=== PATIENT | male | born 1980 | race Caucasian/White ===

== ENCOUNTER 2016-09-10 11:55 | Emergency (ER) | payer MEDICARE, MEDICAID ==
[~2016-09-10] VITALS: Ht 165.1 cm; Wt 75.5 kg
[2016-09-10 11:58] VITALS: BP 109/80
[2016-09-10] MEDS ORDERED: VITA200016 PO (12:14)
[2016-09-10] MEDS ORDERED: CLON1TAB PO (12:14)
[2016-09-10] MEDS ORDERED: LATU120T PO (12:14)
[2016-09-10] MEDS ORDERED: LEXA5SOL PO (12:14)
[2016-09-10] MEDS ORDERED: DEPA250C PO (12:14)
[2016-09-10] MEDS ORDERED: LEXA1TAB2 PO (12:14)
[2016-09-10] MEDS ORDERED: ZYPR15TA PO (12:14)
[2016-09-10] MEDS ORDERED: DEPA1TAB3 PO (12:14)
[2016-09-10] MEDS ORDERED: NS 1,000 ML IV ONE (12:30)
[2016-09-10 12:53] LABS: BASO # 0.1 K/mm3 (0.0-0.2); BASO % 0.6 % (0.0-1.0); EOS # 0.1 K/mm3 (0.0-0.50); EOS % 0.9 % (0.0-3.0); LARGE UNSTAINED CELL # 0.1 K/mm3 (0.0-0.4); LYMPH # 1.3 K/mm3 (1.5-4.5); LYMPH % 12.3 % (24.0-44.0); MEAN CORPUSCULAR HEMOGLOBIN 30.8 pg (27.0-33.0); MEAN CORPUSCULAR HGB CONC 36.1 g/dl (32.0-36.5); MEAN CORPUSCULAR VOLUME 85.3 fl (80.0-96.0); MONO # 0.7 K/mm3 (0.0-0.8); MONO % 6.8 % (0.0-5.0); NEUTROPHILS # 7.5 K/mm3 (1.8-7.7); NEUTROPHILS % 78.4 % (36.0-66.0); PLATELET COUNT, AUTOMATED 150 k/mm3 (150-450); RED CELL DISTRIBUTION WIDTH 12.7 % (11.5-14.5); WHITE BLOOD COUNT 9.6 K/mm3 (4.0-10.0)
[2016-09-10 13:15] LABS: ALBUMIN 3.7 GM/DL (3.2-5.2); ALBUMIN/GLOBULIN RATIO 1.16 (1.00-1.93); ALKALINE PHOSPHATASE 50 U/L (45-117); ALT/SGPT 23 U/L (12-78); AMYLASE 71 U/L (25-115); ANION GAP 8 MEQ/L (8-16); AST/SGOT 12 U/L (15-37); BILIRUBIN,DIRECT 0.2 MG/DL (0.0-0.2); BILIRUBIN,TOTAL 1.3 MG/DL (0.2-1.0); BLOOD UREA NITROGEN 11 MG/DL (7-18); CALCIUM LEVEL 8.9 MG/DL (8.5-10.1); CARBON DIOXIDE LEVEL 26 MEQ/L (21-32); CHLORIDE LEVEL 107 MEQ/L (98-107); CREATININE FOR GFR 1.01 MG/DL (0.70-1.30); GLOMERULAR FILTRATION RATE > 60.0 (>60); GLUCOSE, FASTING 106 MG/DL (70-105); SODIUM LEVEL 141 MEQ/L (136-145); TOTAL PROTEIN 6.9 GM/DL (6.4-8.2)
[2016-09-10] MEDS ORDERED: ISOVUE-370 76% 100ML VIAL (Q9967) As Ordered ONE (13:21)
--- NOTE | 2016-09-10 13:52 | REP ---
Clinical: Periumbilical and right lower quadrant pain. Technique: Axial contrast enhanced images from the lung bases to the pubic symphysis using 100 ml Isovue 370 intravenous contrast material with coronal and sagittal re-formations. Findings: Moderate peripancreatic and retroperitoneal stranding is compatible with acute pancreatitis and/or duodenitis. The pancreas demonstrates normal parenchymal density without evidence for infarction or necrosis and no pseudocyst or drainable collection/abscess. Liver, spleen, gallbladder, bilateral adrenal glands and kidneys are normal. The enteric system is without obstruction or acute inflammatory process. Normal terminal ileum and appendix identified in the right lower quadrant. Sigmoid diverticulosis noted without acute diverticulitis. Pelvis demonstrates normal bladder and age appropriate prostate/seminal vesicles. Small amount of pelvic free fluid related to the above-mentioned pancreatitis. No free air. No adenopathy. Vasculature normal. Musculoskeletal structures are intact. Lung bases demonstrate small pleural effusions and basilar atelectasis. Impression: 1. Acute pancreatitis without drainable collection/abscess. Associated duodenitis cannot be excluded. Gallbladder and biliary system appear normal by CT evaluation. 2. No further acute abdominopelvic pathology appreciated. 3. Small pleural effusions and basilar atelectasis. Signed by Rishi Macias MD 09/10/2016 01:43 P
[2016-09-10] MEDS ORDERED: ZOFR4TAB3 PO (14:26)
== END 2016-09-10 14:38 | disposition home or self-care (01) ==
LOC: M ED 11:55
DX: K85.90 Acute pancreatitis without necrosis or infection, unspecified (principal); F41.9 Anxiety disorder, unspecified; F33.8 Other recurrent depressive disorders; Z79.899 Other long term (current) drug therapy; Z91.048 Other nonmedicinal substance allergy status
CPT/HCPCS: 74177; 80048; 80076; 81001; 82150; 83690; 85025; 87086; 99283; Q9967

== ENCOUNTER 2016-09-11 10:29 | Emergency (ER) | payer MEDICARE, MEDICAID ==
[~2016-09-11] VITALS: Ht 165.1 cm; Wt 73.6 kg
[~2016-09-11 10:29] MED LIST: CLON1TAB PO; DEPA1TAB3 PO; DEPA250C PO; LATU120T PO; LEXA1TAB2 PO; LEXA5SOL PO; VITA200016 PO; ZOFR4TAB3 PO; ZYPR15TA PO
[2016-09-11 11:25] LABS: BASO % 0.5 % (0.0-1.0); EOS # 0.1 K/mm3 (0.0-0.50); EOS % 1.5 % (0.0-3.0); LARGE UNSTAINED CELL # 0.1 K/mm3 (0.0-0.4); LARGE UNSTAINED CELL % 1.2 % (0.0-4.0); LYMPH # 1.9 K/mm3 (1.5-4.5); LYMPH % 19.8 % (24.0-44.0); MEAN CORPUSCULAR HGB CONC 35.9 g/dl (32.0-36.5); MEAN CORPUSCULAR VOLUME 86.3 fl (80.0-96.0); MONO # 0.6 K/mm3 (0.0-0.8); MONO % 6.5 % (0.0-5.0); NEUTROPHILS # 6.3 K/mm3 (1.8-7.7); NEUTROPHILS % 70.5 % (36.0-66.0); PLATELET COUNT, AUTOMATED 134 k/mm3 (150-450); RED CELL DISTRIBUTION WIDTH 12.7 % (11.5-14.5); WHITE BLOOD COUNT 8.9 K/mm3 (4.0-10.0)
--- NOTE | 2016-09-11 11:37 | REP ---
Clinical: Acute abdominal pain. Pancreatitis. Technique: Mcnamara scale ultrasound using curved array transducer. Findings: The liver and pancreas are normal in contour, and echogenicity without focal hepatic or pancreatic lesions identified. Mild hepatomegaly cannot be excluded. The gallbladder demonstrates small amount of layering sludge without gallstones, wall thickening or pericholecystic fluid. No biliary ductal dilatation is appreciated, and the common bile duct measures 2.9 mm diameter. The right kidney is normal in reniform shape without hydronephrosis and measures 11.1 x 5.8 x 4.5 cm. No ascites. Visualized portions of the abdominal aorta normal. Incidental note is made of a small right pleural effusion. Impression: 1. Hepatomegaly without focal hepatic lesion. 2. Small amount of layering gallbladder sludge without sonographic evidence for acute cholecystitis. 3. Small right pleural effusion. Signed by Rishi Macias MD 09/11/2016 11:28 A
[2016-09-11 11:57] LABS: ALBUMIN 3.2 GM/DL (3.2-5.2); ALBUMIN/GLOBULIN RATIO 1.03 (1.00-1.93); ALKALINE PHOSPHATASE 41 U/L (45-117); ALT/SGPT 19 U/L (12-78); AMYLASE 59 U/L (25-115); ANION GAP 7 MEQ/L (8-16); AST/SGOT 10 U/L (15-37); BILIRUBIN,DIRECT 0.3 MG/DL (0.0-0.2); BILIRUBIN,TOTAL 2.1 MG/DL (0.2-1.0); BLOOD UREA NITROGEN 8 MG/DL (7-18); CALCIUM LEVEL 8.9 MG/DL (8.5-10.1); CARBON DIOXIDE LEVEL 29 MEQ/L (21-32); CHLORIDE LEVEL 107 MEQ/L (98-107); CREATININE FOR GFR 1.13 MG/DL (0.70-1.30); GLOMERULAR FILTRATION RATE > 60.0 (>60); GLUCOSE, FASTING 92 MG/DL (70-105); POTASSIUM SERUM 3.7 MEQ/L (3.5-5.1); SODIUM LEVEL 143 MEQ/L (136-145); TOTAL PROTEIN 6.3 GM/DL (6.4-8.2)
[2016-09-11 12:30] VITALS: BP 119/72
--- NOTE | 2016-09-12 07:03 | ED PDOC ---
Post-Departure Follow-Up certified letter sent to patient Yasmeen Pederson MD Sep 12, 2016 07:03
== END 2016-09-11 12:32 | disposition home or self-care (01) ==
LOC: M ED 10:29
DX: K83.9 Disease of biliary tract, unspecified (principal); K85.90 Acute pancreatitis without necrosis or infection, unspecified; R16.0 Hepatomegaly, not elsewhere classified; J90 Pleural effusion, not elsewhere classified; F41.9 Anxiety disorder, unspecified; Z79.899 Other long term (current) drug therapy